=== PATIENT | male | born 1955 | race Caucasian/White ===

== ENCOUNTER 2020-02-05 18:32 | Inpatient (IN) ==
[2020-02-05] MEDS ORDERED: CEFAZOLIN SODIUM/DEXTROSE,ISO 1 GM/50 ML BAG IV ONE (18:39)
[2020-02-05] MEDS ORDERED: ceFAZolin SODIUM/DEXTROSE,ISO 2 GM/50 ML BAG IV ONE (18:42)
[2020-02-05 19:04] LABS: Hematocrit 40.7 % (42.0-52.0); Hemoglobin 13.6 gm/dL (13.5-18.0); Mean Cell Volume 99.5 fl (78-100); Mean Corpuscular Hemoglobin 33.3 pg (27-31); Mean Corpuscular Hgb Conc 33.4 g/dl (32-36); Mean Platelet Volume 10.5 fl (8-11.3); Neutrophil # 5.5 K/mm3 (1.3-6.0); Platelet Count 197 K/mm3 (150-450); Red Blood Count 4.09 M/mm3 (4.7-6.0); Red Cell Distribution Width 13.1 % (11.5-14.0); White Blood Count 9.5 K/mm3 (4.0-10.5)
[2020-02-05] MEDS ORDERED: DIPHTH,PERTUSS(ACELL),TET VAC 0.5 ML VIAL IM ONE (19:06)
--- NOTE | 2020-02-05 19:17 | ERNOTE ---
Lower Extremity HPI - Narrative Date of Service: 02/05/20 - General Lower Extremities Pain: leg: right - puncture at site of fracture Time Seen by Provider: 02/05/20 18:40 Source: patient, family - spouse Exam Limitations: no limitations - Immun/Allergies/Home Medications Immunizations: IMMUNIZATION HX Immunizations Up to Date Yes History of Influenza Vaccine More Information Required Allergies/Adverse Reactions: Allergies Allergy/AdvReac Type Severity Reaction Status Date / Time No Known Allergies Allergy Unverified 02/05/20 18:40 Home Medications: HOME MEDICATIONS Amitriptyline HCl [Elavil] 50 mg PO HS 02/05/20 [Last Taken Unknown] Divalproex Sodium [Depakote ER] 1,000 mg PO HS 02/05/20 [Last Taken Unknown] Gabapentin 300 mg PO TID 02/05/20 [Last Taken Unknown] HYDROcodone/ACETAMINOPHEN [Hydrocodon-Acetaminophn 10-325] 1 tab PO TID PRN 02/05/20 [Last Taken Unknown] Midodrine HCl 2.5 mg PO DAILY 02/05/20 [Last Taken Unknown] metFORMIN HCL [Metformin HCl] 500 mg PO BID 02/05/20 [Last Taken Unknown] - Pain Score Pain Score #1 Pain Score: 4 - History of Present Illness Narrative: The patient is a 64 year old male who presents via [facility] for open fracture after syncopal episode which has been present since [employer]. There are no associated symptoms. The patient reports pain to RLE, 410. There are alleviating factors of immobilization. There are aggravating factors of movement. Previous treatments have included: Fentanyl and Ketamine given in route by EMS. The past medical history includes: hypotension and syncope . The social history is negative. The patient has had no known ill contacts. Patient states that he has a history of syncope from drop in his blood pressure and believes that is what happened today. Report from patient's that patient was found laying on his back with bilateral lower extremites folded underneath after he yelled for help. Patient states last he recalls is getting something to drink, patient denies awareness of fall until he awoke. Review of Systems - Review of Systems Constitutional: Present: no symptoms reported. Absent: recent illness, fever, fatigue EYE: Present: no symptoms reported. Absent: vision changes ENT: Present: no symptoms reported. Absent: ear pain, nasal drainage, sore throat Respiratory: Present: no symptoms reported. Absent: shortness of breath, cough Cardiology: Present: no symptoms reported. Absent: chest pain Gastrointestinal/Abdominal: Present: no symptoms reported. Absent: vomiting, diarrhea, abdominal pain, eating less, drinking less Genitourinary: Present: no symptoms reported. Absent: decreased urinary output Musculoskeletal: Present: joint pain, joint swelling Skin: Present: lesions Neurological: Present: no symptoms reported. Absent: headache, dizziness/light- headedness, numbness All Other Systems: All systems neg except as marked Medical History (Last Reviewed 02/05/20 @ 19:09 by SON Atkins) History of syncope Hx of hypotension Surgical History: Surgical History (Last Reviewed 02/05/20 @ 19:09 by SON Atkins) History of throat surgery Hx of appendectomy Hx of foot surgery Hx of rotator cuff surgery Family History: Family History (Last Reviewed 02/05/20 @ 19:09 by SON Atkins) Other No pertinent family history Social History: (Last Updated 02/05/20 @ 19:34 by Rose Peña RN) Tobacco: Smoking Status: Never smoker Physical Exam - Physical Exam General Appearance: Present: wd/wn, alert, mild distress Head Exam: Present: normal inspection, no evidence of injury, other - top of head superficial abrasions consistent with insect bites, no surrounding erythema or drainage Eye Exam: Normal inspection: bilateral, PERRL: bilateral, EOMI: bilateral Ears, Nose, Throat: Present: dry mucous membranes Neck: Present: normal inspection, nontender, full range of motion Respiratory: Present: no respiratory distress, normal breath sounds, no accessory muscle use, lungs clear Cardiovascular/Chest: Present: regular rate, rhythm, no murmur Peripheral Pulses: N=norm/S=strong/W=weak/B=bound/A=absent: Dorsalis-pedis (R): Normal Gastrointestinal/Abdominal: Present: normal bowel sounds, nontender, nondistended, soft, no organomegaly Extremity Exam: Present: bony tenderness - right lower mid leg, puncture wound to anterior lateral calf consistent with area of angulation from presumed fracture Neurological Exam: Present: alert, oriented, normal mood/affect, no motor/sensory deficits Skin Exam: Present: normal color, warm/dry, other - ecchymosis noted to right anterior lower leg, cap refill Progress - Date and Time Seen: Date and Time: 02/05/20 19:15 was present upon arrival of patient, OCL placed to right lower extremity, sugar tong with flat plate, N/V remain intact post splinting. Open puncture has controlled bleeding, covered with saturated 4x4 with Betadine and soft roll. 02/05/20 21:26 Review of imaging and labs discussed with , will admit for planned surgical intervention tomorrow with . Patient verbalized understanding of plan of care. N/V remains intact. - Results and Orders Patient's Lab Results:: I have reviewed the patient's lab results. - Vital Signs Patient's Vital Signs:: I have reviewed the patient's vital signs. Vital Signs: Vital Signs 02/05/20 18:38 02/05/20 18:53 Temperature 36.6 C Pulse Rate 86 89 Respiratory Rate 14 16 Blood Pressure 113/91 H 113/91 H O2 Sat by Pulse Oximetry 97 95 - EKG EKG #1 EKG: NSR, nonspecific ST T wave changes EKG read: Reviewed by ca EKG Comments: No acute ST changes, no acute ischemic changes, no ectopy. - X-Ray X-Ray #1 X-Ray: chest Interpretation: Reviewed by me X-ray Comments: No acute cardiopulmonary abnormalities. X-Ray #2 X-Ray: tibula/fibula Interpretation: Reviewed by me X-ray Comments: FINDINGS/IMPRESSION: Splinting device in place. There is an acute, displaced spiral fracture of the distal tibial diaphysis with medial and posterior displacement of distal fragment in relation to the proximal fragment. There is an acute, displaced oblique fracture of the distal fibular diaphysis with apex ventral angulation. Evaluation of the foot on the lateral view is suboptimal due to splinting device. There is an oblique linear lucency at the fifth metatarsal which could be artifactual related to the overlying splinting device. Recommend correlation with pain in this region and if clinically warranted, dedicated foot radiographs should be obtained to further evaluate. Electronically signed by Tisha Martinez D.O.. - CT/Ultrasound CT/Ultrasound Narrative: Impression: No acute fracture. Straightening of the normal cervical lordosis which could be positional or related to muscle spasm. Electronically signed by Tisha Martinez D.O.. Impression: No acute intracranial process. Mild cerebral volume loss. Mild chronic small vessel ischemic disease. Electronically signed by Tisha Martinez D.O.. - Progress/Reassessment Chief Complaint: Lower Extremity Pain/ Injury Progress:: Improved Departure Clinical Impression: Tibia and fibula open fracture, right Qualifiers: Encounter type: initial encounter Open fracture type: open type I or II Qualified Code(s): S82.201B - Unspecified fracture of shaft of right tibia, initial encounter for open fracture type I or II - Departure Disposition: Still a patient Condition: Stable
[2020-02-05 19:23] LABS: INR 1.12 INR (0.92-1.08); Partial Thrombolplastin Time 22.6 Seconds (24-32)
[2020-02-05 19:26] LABS: ALT 25 U/L (19-67); AST 18 U/L (0-48); Albumin * 3.3 gm/dl (3.4-5.0); Alkaline Phosphatase * 82 U/L (50-170); BUN/Creatinine Ratio 14.5 (9.0-21.6); Bilirubin, Total 0.6 mg/dL (0.0-1.1); Blood Urea Nitrogen 24 mg/dL (6-23); Calcium * 8.8 mg/dL (7.9-10.9); Carbon Dioxide 29.6 mmol/L (24-32.6); Chloride 103 mmol/L (97-106); Glucose * 140 mg/dL (70-110); Potassium 3.6 mmol/L (3.4-4.6); Sodium 140 mmol/L (132-142)
[2020-02-05 19:29] LABS: Troponin I Less than 0.017 ng/mL (0.00-0.10)
[2020-02-05] MEDS ORDERED: HYDROmorphone HCL 1 MG/ML DISP.SYRIN IV ONE ×2 (19:37→20:39)
[2020-02-05] MEDS ORDERED: HYDROmorphone HCL 2 MG/ML VIAL IV PRN (20:58)
[2020-02-05] MEDS ORDERED: ONDANSETRON HCL/PF 2 MG/ML VIAL IV PRN (20:58)
[2020-02-05] MEDS ORDERED: NORMAL SALINE 1,000 ML IV ONE (20:58)
[2020-02-05] MEDS: ceFAZolin SODIUM/DEXTROSE,ISO 2 GM/50 ML BAG IV SCH (21:21)
[2020-02-05] MEDS: HYDROmorphone HCL 2 MG/ML VIAL IV PRN (22:47)
[2020-02-06] MEDS: HYDROmorphone HCL 2 MG/ML VIAL IV PRN ×2 (02:46→07:11)
[2020-02-06] MEDS ORDERED: NORMAL SALINE 1,000 ML IV PRN (03:44)
[2020-02-06] MEDS: ceFAZolin SODIUM/DEXTROSE,ISO 2 GM/50 ML BAG IV SCH ×2 (04:04→14:05)
--- NOTE | 2020-02-06 07:47 | CONS ---
[facility] - General Date of Service: 02/06/20 Narrative: Mr. Denis is a 64-year-old gentleman who was at home when he had an episode which resulted in him falling to the ground and noting a deformity to his right leg. He was brought to the emergency department with a grade 1 open distal tibia and fibula shaft fracture. He was splinted given antibiotics and had a sterile dressing applied to the wound and admitted for further care. He reports a prior injury to his left foot. He denies any prior trauma to the right leg. He denies any other symptoms. Source: patient - History of Present Illness Timing/Duration: 24 hours Severity: mild Modifying Factors - (Worsens): Reports: movement Modifying Factors - (Improves): Reports: immobilization Associated Symptoms: denies symptoms Allergies/Adverse Reactions: Allergies No Known Allergies Allergy (Unverified 02/05/20 18:40) Home Medications: Home Medications Medication Instructions Recorded Last Taken Amitriptyline HCl [Elavil] 50 mg PO HS 02/05/20 Unknown Divalproex Sodium [Depakote ER] 1,000 mg PO HS 02/05/20 Unknown Gabapentin 300 mg PO TID 02/05/20 Unknown HYDROcodone/ACETAMINOPHEN 1 tab PO TID PRN 02/05/20 Unknown [Hydrocodon-Acetaminophn 10-325] Midodrine HCl 2.5 mg PO DAILY 02/05/20 Unknown metFORMIN HCL [Metformin HCl] 500 mg PO BID 02/05/20 Unknown Procedures Injection of anesthetic into spinal canal for analgesia (05/13/06) Injection of other agent into spinal canal (05/13/06) Injection of steroid (05/13/06) Medications - Medications Current Medications: Current Medications Hydromorphone HCl (Dilaudid) 2 mg IV Q2H PRN PRN Reason: pain Stop: 03/06/20 22:31 Last Admin: 02/06/20 07:11 Dose: 2 mg Documented by: Cefazolin Sodium/Dextrose (Ancef) 2 gm in 50 mls @ 100 mls/hr IV Q8H [facility]; Protocol Stop: 03/06/20 21:01 Last Infusion: 02/06/20 04:43 Dose: Infused Documented by: Sodium Chloride (Sodium Chloride 0.9%) 1,000 mls @ 160 mls/hr IV .Q6H15M PRN PRN Reason: HYDRATION Stop: 03/07/20 03:45 Last Admin: 02/06/20 03:51 Dose: 160 mls/hr Documented by: Review of Systems - Review of Systems Narrative: Negative except for above Physical Examination - Exam Narrative: Right lower extremity: Less than 1 cm laceration bleeding bright red blood from the lateral aspect of the lower leg, noted swelling over the anterior distal leg, mild deformity, he was able to flex and extend his toes and to some extent his ankle, sensations intact, possible pulse, no other skin breakdown, calf is soft Vital Signs: Vital Signs - Last Taken Temp 37.2 C 02/06/20 06:34 Pulse 112 H 02/06/20 06:34 Resp 20 02/06/20 06:34 BP 93/60 02/06/20 06:34 Pulse Ox 94 02/06/20 06:34 O2 Oxygen Delivery Method Room Air Constitutional: Present: Alert, Oriented x3 - Results and Findings: Narrative: 2 views right tibia and fibula: Comminuted distal fibula and distal tibia shaft fractures, noted displacement, no displacement of the intra-articular distal tibia Lab/Microbiology results last 24 hrs: Abnormal/Pending Laboratory Last 24 HRS 02/05/20 02/05/20 02/05/20 18:55 18:55 18:55 RBC 4.09 L Hct 40.7 L MCH 33.3 H Immature Gran % (Auto) 0.50 H Immature Gran # (Auto) 0.05 H Eosinophils % 3.9 H Basophils % 1.1 H PT 11.0 H INR (Anticoag Therapy) 1.12 H PTT (Milly) 22.6 L BUN 24 H Creatinine 1.65 H Est GFR (Non-Af Amer) 45 L Random Glucose 140 H Albumin 3.3 L - Assessments/Findings (1) Tibia and fibula open fracture, right Diagnosis(s): Plan for fixation today - Will need 48 hr post-op antibiotics Problem: Acute Qualifiers: Encounter type: initial encounter Open fracture type: open type I or II Qualified Code(s): S82.201B - Unspecified fracture of shaft of right tibia, initial encounter for open fracture type I or II; S82.401B - Unspecified fracture of shaft of right fibula, initial encounter for open fracture type I or II
--- NOTE | 2020-02-06 07:54 | HP ---
Chief Complaint - Chief Complaint Date of Service: 02/06/20 Time of Service: 07:00 Chief Complaint: Fall, Right leg pain History of Present Illness: Ferny is a 64 yo male with history of hypotensive episodes and falls. He reports he was walking in his house and the next moment he is on the ground. He does not recall falling or the cause to the fall, other than his history of drops. On the floor he noticed right leg pain and noticed his leg was not moving properly. He presented to the [facility] ER and examination/imaging showed right open tib/fib fracture. He was seen by orthopedics who recommend surgical repair. He reports he has been in his usual state of health. He is scheduled to see a DrRobles in [place] in regards to his syncopal episodes but is unsure what specialty. He denies cardiac history, including chest pain, palpitations, skipped beats, or shortness of breath. Medical History (Last Reviewed 02/05/20 @ 21:47 by Beronica Gonzalez RN) History of syncope Hx of hypotension Surgical History: Surgical History (Last Reviewed 02/05/20 @ 21:47 by Beronica Gonzalez RN) History of throat surgery Hx of appendectomy Hx of foot surgery Hx of rotator cuff surgery Family History: Family History (Last Reviewed 02/05/20 @ 21:47 by Beronica Gonzalez RN) Other No pertinent family history Social History: (Last Reviewed 02/05/20 @ 21:47 by Beronica Gonzalez RN) Tobacco: Smoking Status: Never smoker Review Of Systems (GEN) - Review of Systems Generalized/Overall Review: Present: Weakness. Absent: Chills, Fever EENTM: Present: No Symptoms Reported Respiratory: Absent: Cough, Shortness of Breath Cardiac: Absent: Chest Pain, Edema Abdominal: Absent: Nausea, Vomiting, Abdominal Pain, Constipation, Diarrhea Genitourinary: Absent: Burning, Frequency Musculoskeletal: Present: Joint Pain, Muscle Pain Neurological: Present: No Symptoms Reported Skin: Absent: Lesions, Rash Immunizations: IMMUNIZATION HX Immunizations Up to Date Yes History of Influenza Vaccine More Information Required Allergies/Adverse Reactions: Allergies Allergy/AdvReac Type Severity Reaction Status Date / Time No Known Allergies Allergy Unverified 02/05/20 18:40 Home Medications: HOME MEDICATIONS Amitriptyline HCl [Elavil] 50 mg PO HS 02/05/20 [Last Taken Unknown] Divalproex Sodium [Depakote ER] 1,000 mg PO HS 02/05/20 [Last Taken Unknown] Gabapentin 300 mg PO TID 02/05/20 [Last Taken Unknown] HYDROcodone/ACETAMINOPHEN [Hydrocodon-Acetaminophn 10-325] 1 tab PO TID PRN 02/05/20 [Last Taken Unknown] Midodrine HCl 2.5 mg PO DAILY 02/05/20 [Last Taken Unknown] metFORMIN HCL [Metformin HCl] 500 mg PO BID 02/05/20 [Last Taken Unknown] Exam - Exam Vital Signs: Vital Signs - Last Taken Temp 37.2 C 02/06/20 06:34 Pulse 112 H 02/06/20 06:34 Resp 20 02/06/20 06:34 BP 93/60 02/06/20 06:34 Pulse Ox 94 02/06/20 06:34 Constitutional: Present: Alert, Oriented x3, Cooperative ENT Exam: Present: hearing grossly normal Eye Exam: bilateral eye: normal inspection Respiratory: Present: lungs clear, normal breath sounds, no respiratory distress Cardiovascular/Chest: Present: no edema, no murmur, tachycardia Peripheral Pulses: dorsalis-pedis (R): 2+, dorsalis-pedis (L): 2+, radial (R): 2+, radial (L): 2+ Abdomen: Present: Normal bowel sounds, soft, nontender, nondistended Skin Exam: Present: normal color, no cyanosis, other - right foot is a little cooler than left, but has brisk capillary refill Appearance: Present: appropriate appearance, appropriate insight Eye contact: Present: cooperative, good eye contact, normal speech Thoughts: Present: normal thought pattern, no apparent hallucination Diagnostic Studies: Abnormal Lab Results 02/05/20 02/05/20 02/05/20 Range/Units 18:55 18:55 18:55 RBC 4.09 L (4.7-6.0) M/mm3 Hct 40.7 L (42.0-52.0) % MCH 33.3 H (27-31) pg Immature Gran % (Auto) 0.50 H (0.001-0.429) % Immature Gran # (Auto) 0.05 H (0.000-0.0310) K/mm3 Eosinophils % 3.9 H (0.0-3.0) % Basophils % 1.1 H (0.0-1.0) % PT 11.0 H (9.1-10.7) Seconds INR (Anticoag Therapy) 1.12 H (0.92-1.08) INR PTT (Milly) 22.6 L (24-32) Seconds BUN 24 H (6-23) mg/dL Creatinine 1.65 H (0.4-1.4) mg/dL Est GFR (Non-Af Amer) 45 L (60-130) mL/min Random Glucose 140 H (70-110) mg/dL Albumin 3.3 L (3.4-5.0) gm/dl Laboratory Results WBC 9.5 K/mm3 (4.0-10.5) 02/05/20 18:55 RBC 4.09 M/mm3 (4.7-6.0) L 02/05/20 18:55 Hgb 13.6 gm/dL (13.5-18.0) 02/05/20 18:55 Hct 40.7 % (42.0-52.0) L 02/05/20 18:55 MCV 99.5 fl (78-100) 02/05/20 18:55 MCH 33.3 pg (27-31) H 02/05/20 18:55 MCHC 33.4 g/dl (32-36) 02/05/20 18:55 RDW 13.1 % (11.5-14.0) 02/05/20 18:55 Plt Count 197 K/mm3 (150-450) 02/05/20 18:55 MPV 10.5 fl (8-11.3) 02/05/20 18:55 Immature Gran % (Auto) 0.50 % (0.001-0.429) H 02/05/20 18:55 Immature Gran # (Auto) 0.05 K/mm3 (0.000-0.0310) H 02/05/20 18:55 Neutrophils % 58.0 % (42-75.0) 02/05/20 18:55 Lymphocytes % 28.5 % (20-51) 02/05/20 18:55 Monocytes % 8.0 % (0.0-9) 02/05/20 18:55 Eosinophils % 3.9 % (0.0-3.0) H 02/05/20 18:55 Basophils % 1.1 % (0.0-1.0) H 02/05/20 18:55 Nucleated RBC % 0.0 k/mm3 (0-1) 02/05/20 18:55 Neutrophils # 5.5 K/mm3 (1.3-6.0) 02/05/20 18:55 Lymphocytes # 2.71 k/mm3 (1.5-3.5) 02/05/20 18:55 Monocytes # 0.8 k/mm3 (0.0-1.0) 02/05/20 18:55 Eosinophils # 0.4 k/mm3 (0.0-0.7) 02/05/20 18:55 Absolute Basophils 0.1 k/mm3 (0.0-0.1) 02/05/20 18:55 PT 11.0 Seconds (9.1-10.7) H 02/05/20 18:55 INR (Anticoag Therapy) 1.12 INR (0.92-1.08) H 02/05/20 18:55 PTT (Milly) 22.6 Seconds (24-32) L 02/05/20 18:55 Sodium 140 mmol/L (132-142) 02/05/20 18:55 Plasma Sodium 141 mmol/L (130-142) 02/05/20 18:55 Potassium 3.6 mmol/L (3.4-4.6) 02/05/20 18:55 Chloride 103 mmol/L (97-106) 02/05/20 18:55 Carbon Dioxide 29.6 mmol/L (24-32.6) 02/05/20 18:55 Anion Gap 11.0 mmol/L (6.8-13.8) 02/05/20 18:55 BUN 24 mg/dL (6-23) H 02/05/20 18:55 Creatinine 1.65 mg/dL (0.4-1.4) H 02/05/20 18:55 Est GFR (Non-Af Amer) 45 mL/min (60-130) L 02/05/20 18:55 BUN/Creatinine Ratio 14.5 (9.0-21.6) 02/05/20 18:55 Random Glucose 140 mg/dL (70-110) H 02/05/20 18:55 Calcium 8.8 mg/dL (7.9-10.9) 02/05/20 18:55 Calcium Adj for Albumin 9.0 mg/dL (8.4-10.2) 02/05/20 18:55 Total Bilirubin 0.6 mg/dL (0.0-1.1) 02/05/20 18:55 AST 18 U/L (0-48) 02/05/20 18:55 ALT 25 U/L (19-67) 02/05/20 18:55 Alkaline Phosphatase 82 U/L (50-170) 02/05/20 18:55 Troponin I Less than 0.017 ng/mL (0.00-0.10) 02/05/20 18:55 Total Protein 7.0 gm/dL (6.2-8.2) 02/05/20 18:55 Albumin 3.3 gm/dl (3.4-5.0) L 02/05/20 18:55 SARS-CoV-2 (PCR) Not detected (NotDetected) 02/05/20 19:47 Assessment/Plan - Narrative Narrative: Ferny is a 64 yo male with history of syncopal episodes, most recently causing a fall leading to right open tib/fib fracture. Ortho was consulted and will surgically repair today. Ferny is medically stable. Patient was evaluated for pre-operative risks. Based on Revised Cardiovascular Risk Index he has a risk of 1% for cardiovascular event. I feel he is medically cleared for surgery. His pain is fairly well controlled with IV dilaudid at this time. EKG and labs reviewed. - Assessment/Plan (1) Tibia and fibula open fracture, right Problem: Acute Qualifiers: Encounter type: initial encounter Open fracture type: open type I or II Qualified Code(s): S82.201B - Unspecified fracture of shaft of right tibia, initial encounter for open fracture type I or II; S82.401B - Unspecified fracture of shaft of right fibula, initial encounter for open fracture type I or II (2) Fall Problem: Acute (3) Syncopal episodes Problem: Chronic
--- NOTE | 2020-02-06 12:38 | ANES ---
Anesthesia Pre Procedure Eval Vitals/Labs: Last Vital Signs Temp 37.2 C 02/06/20 11:06 Pulse 106 H 02/06/20 11:56 Resp 23 H 02/06/20 11:56 BP 100/76 02/06/20 11:06 Pulse Ox 98 02/06/20 11:56 HOME MEDICATIONS Amitriptyline HCl [Elavil] 50 mg PO HS 02/05/20 [Last Taken Unknown] Divalproex Sodium [Depakote ER] 1,000 mg PO HS 02/05/20 [Last Taken Unknown] Gabapentin 300 mg PO TID 02/05/20 [Last Taken Unknown] HYDROcodone/ACETAMINOPHEN [Hydrocodon-Acetaminophn 10-325] 1 tab PO TID PRN 02/05/20 [Last Taken Unknown] Midodrine HCl 2.5 mg PO DAILY 02/05/20 [Last Taken Unknown] metFORMIN HCL [Metformin HCl] 500 mg PO BID 02/05/20 [Last Taken Unknown] Allergies/Adverse Reactions: Allergies Allergy/AdvReac Type Severity Reaction Status Date / Time No Known Allergies Allergy Unverified 02/05/20 18:40 - Planned Procedure Planned Procedure: OPEN TIB/FIB FX RIGHT Medication List Reviewed:: Yes Allergies Verified: Yes Medical History (Last Reviewed 02/06/20 @ 12:37 by Armani Moise CRNA) History of syncope Hx of hypotension Surgical History (Last Reviewed 02/06/20 @ 12:37 by Armani Moise CRNA) History of throat surgery Hx of appendectomy Hx of foot surgery Hx of rotator cuff surgery Family History (Last Reviewed 02/06/20 @ 12:37 by Armani Moise CRNA) Other No pertinent family history - Family Anesthesia History Family History:: no untoward family reactions to anesthesia - Airway/Neck/Teeth Teeth Condition: none Neck Exam: limited range of motion Mallampatti Score: 3 Thyromental (T-M) distance: > 6 cm Mandibulo Hyoid distance: > 3 cm - Respiratory Respiratory History: CPAP/BiPAP home use Respiratory Physical: lungs clear Smoking Status: Never smoker Sleep Apnea currently treated: Yes Sleep Apnea by current assessment: Yes - Cardiovascular Tolerate Activity: Fair Heart Sounds: S1 & S2, Regular - Gastrointestinal NPO since: mn - Anesthesia Assessment and Plan ASA Class: PS, III Anesthesia Type Plan: General LMA Planned difficult intubation/equipment available: No
[2020-02-06] MEDS: NORMAL SALINE 1,000 ML IV PRN ×3 (13:38→18:38)
[2020-02-06] MEDS ORDERED: ceFAZolin SODIUM 1 GM VIAL ONE (14:01)
[2020-02-06] MEDS: MIDODRINE HCL 2.5 MG TABLET PO SCH (14:12)
[2020-02-06] MEDS ORDERED: BUPIVACAINE HCL 50 ML VIAL IJ ONE (14:29)
[2020-02-06] MEDS ORDERED: PROPOFOL VIAL IV ONE (15:40)
[2020-02-06] MEDS ORDERED: KETOROLAC TROMETHAMINE 30 MG/ML VIAL ONE (15:40)
[2020-02-06] MEDS ORDERED: ONDANSETRON HCL/PF 2 MG/ML VIAL ONE (15:40)
[2020-02-06] MEDS ORDERED: fentaNYL CITRATE/PF 50 MCG/ML AMPUL ONE (15:40)
[2020-02-06] MEDS ORDERED: SEVOFLURANE 250 ML BTL IH ONE (15:56)
[2020-02-06] MEDS ORDERED: ZOLPIDEM TARTRATE 5 MG TABLET PO PRN (18:44)
[2020-02-06] MEDS ORDERED: ACETAMINOPHEN 500 MG TABLET PO PRN (18:44)
[2020-02-06] MEDS ORDERED: MAG HYDROX/ALUMINUM HYD/SIMETH 30 ML UDC PO PRN (18:44)
[2020-02-06] MEDS ORDERED: MAGNESIUM HYDROXIDE 30 ML UDC PO PRN (18:44)
--- NOTE | 2020-02-06 18:52 | OR ---
Operative Report - Dictated Report Narrative: date: 02/06/2020 Surgeon: Pardeep Caceres M.D. Nurse First Aid: Cristobal Golden PA-C (provided an essential set of skilled educated handset assisted with transfer, positioning, prepping, draping, placement of instruments, insertion of implants, irrigation, closure wounds, and placement of dressings all which could not be performed by the available surgical crew) Preoperative diagnosis: Grade 1 open comminuted distal fibula and closed comminuted distal tibia fracture on the right Postoperative diagnosis: Grade 1 open comminuted distal fibula and closed comminuted distal tibia fracture on the right Operations and procedures: 1. Closed reduction, intramedullary fixation right tibia fracture 2. Irrigation debridement of wounds 3. Closed treatment of distal fibula fracture 4. Intraoperative interpretation of radiographs Anesthesia: General Specimens: None Estimated blood loss: 100 milliliters Retained implants: [employer] size 10 mm by 38 centimeter tibial nail with associated proximal and distal locking screws Complications: None Indications for procedure: Mr. Denis is a 64-year-old gentleman who injured the right leg after ground- level fall at home. They were admitted to the hospital after being evaluated in the emergency department. Once the medical provider felt that they were stable for surgical treatment, the risks and benefits alternatives were discussed. The risks of , blood clots, bleeding, infection, nerve/tendon/blood vessel inj ury, malunion, nonunion, failure of implants, painful implants, knee pain, arthrosis, and need for additional procedures were discussed. The extremity was marked and consent was obtained on the floor. Procedure: After marking the operative extremity on the floor, the patient was taken to the operating room. A timeout was performed. IV antibiotics consisting of Ancef were administered. A general anesthetic was induced by anesthesia, and the patient was then placed in the supine position with a bump under the operative buttock. The splint was removed and the leg was pre-scrubbed with chlorhexidine and prepped and draped in a standard sterile fashion. Preliminary images were obtained with C arm in order to evaluate for reduction of the fracture. The knee was placed over a triangle and a longitudinal incision was made over the patella tendon. Sharp dissection was carried through the patella tendon in order to expose the proximal tibia. The guidewire was then inserted to the proximal tibia just off the anterior aspect of the tibial plateau in line with the lateral aspect of the medial tibial spine. Once we confirm the appropriate placement of the guidewire, soft tissues were protected and the entry drill was placed down the proximal tibia. While holding the tibial fracture reduced on both the AP and lateral views, the reaming guidewire was placed down the intramedullary canal seating it centered on the AP and lateral aspect of the distal tibia. Once we felt that we had adequately reduced the fracture and appropriately placed the guidewire, a series of reamers were utilized up to a size 11.5 mm with good chatter at the isthmus. The appropriate nail size was selected and impacted. The fracture was held reduced and a percutaneous reduction clamp was used while this was performed and visualized using C arm. 2 proximal interlocking screws and 2 distal interlocking screws were then placed ensuring that the fracture was reduced. This was confirmed on AP and lateral views. The nail was confirmed to be below the level of the bone proximally and outside of the ankle joint distally. The small 1 cm puncture wound over the distal fibula was irrigated and closed with jassi. Due to the stability of the ankle and the overall acceptable fibular alignment, it was elected not to proceed with surgical intervention of the fibula unnecessarily treated closed. Once final images were obtained ensuring reduction and placement of the implants, the wounds were thoroughly irrigated. The patella tendon was repaired with interrupted 0 Vicryl, the peritenon was closed with 3-0 Vicryl, subcutaneous tissue with 3-0 Vicryl as well as the percutaneous screw incisions. All the wounds were closed with jassi. Xeroform, 4 x 4's, Sof-Rol, and a full leg Karthikeyan wrap was applied. All sponge, sharp, and instrument counts were correct prior to closing the wounds. The patient was then awoken and transferred to the postanesthesia care unit in stable condition.
--- NOTE | 2020-02-06 19:38 | ANES ---
Post Anesthesia Discharge - Transfer of Care Transfer of Care handoff given to nurse: Yes - Discharge from PACU Discharge from PACU when meets criteria: Yes
--- NOTE | 2020-02-06 19:38 | ANES ---
Post Anesthesia Assessment - Vital Signs Vitals: Last Vital Signs Temp 36.8 C 02/06/20 18:55 Pulse 103 H 02/06/20 19:15 Resp 18 02/06/20 19:15 BP 110/69 02/06/20 19:15 Pulse Ox 96 02/06/20 19:15 Airway Patency: Normal - Mental Status Level Of Consciousness: Awake - Pain Level Pain Score: 5 - N/V Assessment Nausea/Vomiting Presence: None Dehydration:: No
[2020-02-06] MEDS: oxyCODONE HCL/ACETAMINOPHEN 1 TAB TABLET PO PRN (21:13)
[2020-02-06] MEDS: DIVALPROEX SODIUM 500 MG TAB.SR.24H PO SCH (21:13)
[2020-02-06] MEDS: AMITRIPTYLINE HCL 50 MG TABLET PO SCH (21:14)
[2020-02-06] MEDS ORDERED: ASPIRIN 325 MG TABLET.DR ONE (21:17)
[2020-02-06] MEDS: ASPIRIN 81 MG TABLET.DR PO SCH (21:18)
[2020-02-06] MEDS: SENNOSIDES/DOCUSATE SODIUM 1 TAB TABLET PO SCH (21:18)
[2020-02-06] MEDS: ceFAZolin SODIUM 2 GM in DEXTROSE 5 % IN WATER 100 ML IV SCH ×2 (23:33)
[2020-02-07] MEDS: oxyCODONE HCL/ACETAMINOPHEN 1 TAB TABLET PO PRN ×5 (03:24→22:01)
[2020-02-07] MEDS: ceFAZolin SODIUM 2 GM in DEXTROSE 5 % IN WATER 100 ML IV SCH ×2 (05:19)
[2020-02-07] MEDS ORDERED: ceFAZolin SODIUM 1 GM VIAL IV PRN (06:00)
[2020-02-07 06:38] LABS: Hematocrit 30.8 % (42.0-52.0); Mean Cell Volume 102.3 fl (78-100); Mean Corpuscular Hemoglobin 33.2 pg (27-31); Mean Corpuscular Hgb Conc 32.5 g/dl (32-36); Mean Platelet Volume 10.8 fl (8-11.3); Platelet Count 127 K/mm3 (150-450); Red Blood Count 3.01 M/mm3 (4.7-6.0); Red Cell Distribution Width 13.5 % (11.5-14.0)
[2020-02-07 06:40] LABS: Anion Gap 12.5 mmol/L (6.8-13.8); BUN/Creatinine Ratio 16.7 (9.0-21.6); Calcium * 7.3 mg/dL (7.9-10.9); Carbon Dioxide 26.9 mmol/L (24-32.6); Estimated Creat Clear 50.2; Potassium 3.4 mmol/L (3.4-4.6)
[2020-02-07] MEDS: ASPIRIN 81 MG TABLET.DR PO SCH (08:43)
[2020-02-07] MEDS: MIDODRINE HCL 2.5 MG TABLET PO SCH (08:43)
[2020-02-07] MEDS: ceFAZolin SODIUM 2 GM in DEXTROSE 5 % IN WATER 50 ML IV SCH ×4 (10:08→16:11)
--- NOTE | 2020-02-07 15:13 | PN ---
Subjective - Date and Time Seen Date: 02/08/20 Time: 07:30 Subjective Narrative: Subjective: Reports pain. Was able to take a few steps with therapy. Tolerating by mouth intake. Denies any nausea or vomiting. Denies calf pain. Physical exam: Alert and oriented to person, place and time Right lower extremity: Palpable dorsalis pedis pulse. Sensation grossly intact to light touch. Dressings minimal bloody drainage. Able to flex and extend ankle and toes. No excessive drainage. Calf and thigh are soft X-rays of left knee and ankle reviewed: No acute osseous pathology, ankle films consistent with his prior ankle injury Assessment: Postop day 2 status post intramedullary fixation of right tibia. Plan: DContinue with physical and occupational therapy toe-touch weightbearing as tolerated. Continue with anticoagulationaspirin. 48 hours postoperative prophylactic antibiotics. Pain control with goal to rely on oral medications. Continue bowel regimen. Will need 6 weeks with walker or assistive device to protect joint while ambulating during the recovery process. Discharge planning. Okay to discharge from an orthopedic standpoint after 48 hours of postoperative antibiotics. He will continue toe-touch weightbearing and wearing his cam boot. Like to see him back in 2 weeks with x-rays. Objective - Vitals Vitals: Last Vital Signs Temp 36.5 C 02/07/20 14:44 Pulse 102 H 02/07/20 14:44 Resp 17 02/07/20 14:44 BP 131/72 02/07/20 14:44 Pulse Ox 94 02/07/20 14:44 - Abnormal Lab Findings Abnormal Lab Findings: Abnormal Lab Results 02/07/20 02/07/20 Range/Units 06:05 06:05 WBC 12.0 H D (4.0-10.5) K/mm3 RBC 3.01 L (4.7-6.0) M/mm3 Hgb 10.0 L (13.5-18.0) gm/dL Hct 30.8 L (42.0-52.0) % MCV 102.3 H (78-100) fl MCH 33.2 H (27-31) pg Plt Count 127 L (150-450) K/mm3 BUN 30 H (6-23) mg/dL Creatinine 1.80 H (0.4-1.4) mg/dL Est GFR (Non-Af Amer) 40 L (60-130) mL/min Calcium 7.3 L (7.9-10.9) mg/dL Assessment/Plan - Problems/Diagnosis (1) Tibia and fibula open fracture, right Problem: Acute Qualifiers: Encounter type: subsequent encounter Open fracture type: open type I or II Fracture healing: with routine healing Qualified Code(s): S82.201E - Unspecified fracture of shaft of right tibia, subsequent encounter for open fracture type I or II with routine healing; S82.401E - Unspecified fracture of shaft of right fibula, subsequent encounter for open fracture type I or II with routine healing
[2020-02-07] MEDS: SENNOSIDES/DOCUSATE SODIUM 1 TAB TABLET PO SCH (21:56)
[2020-02-07] MEDS: DIVALPROEX SODIUM 500 MG TAB.SR.24H PO SCH (21:56)
[2020-02-07] MEDS: ASPIRIN 325 MG TABLET.DR PO SCH (21:57)
[2020-02-07] MEDS: AMITRIPTYLINE HCL 50 MG TABLET PO SCH (21:57)
--- NOTE | 2020-02-07 23:08 | PN ---
Subjective - Date and Time Seen Date: 02/07/20 Time: 12:30 Subjective Narrative: Ferny reports feeling better today. He has not been up and weight bearing today. He has been off oxygen since last night. No fever, chills, nausea, or vomiting. Objective - Vitals Vitals: Last Vital Signs Temp 36.1 C 02/07/20 18:05 Pulse 89 02/07/20 18:05 Resp 20 02/07/20 18:05 BP 123/46 02/07/20 18:05 Pulse Ox 96 02/07/20 18:05 - Abnormal Lab Findings Abnormal Lab Findings: Abnormal Lab Results 02/07/20 02/07/20 Range/Units 06:05 06:05 WBC 12.0 H D (4.0-10.5) K/mm3 RBC 3.01 L (4.7-6.0) M/mm3 Hgb 10.0 L (13.5-18.0) gm/dL Hct 30.8 L (42.0-52.0) % MCV 102.3 H (78-100) fl MCH 33.2 H (27-31) pg Plt Count 127 L (150-450) K/mm3 BUN 30 H (6-23) mg/dL Creatinine 1.80 H (0.4-1.4) mg/dL Est GFR (Non-Af Amer) 40 L (60-130) mL/min Calcium 7.3 L (7.9-10.9) mg/dL - Exam Constitutional: Present: Alert, Oriented x3 ENT Exam: Present: hearing grossly normal Respiratory: Present: lungs clear, normal breath sounds Cardiovascular/Chest: Present: regular rate, rhythm, no murmur Abdomen: Present: Normal bowel sounds, soft, nontender, nondistended Appearance: Present: appropriate appearance, appropriate insight Eye contact: Present: cooperative, good eye contact, normal speech Assessment/Plan Plan Narrative: Respiratory status back to baseline. He is doing fairly well after surgery, just needing strengthening. Continue to work with PT and if progressing may be able to discharge tomorrow. - Problems/Diagnosis (1) Tibia and fibula open fracture, right Problem: Acute Qualifiers: Encounter type: subsequent encounter Open fracture type: open type I or II Fracture healing: with routine healing Qualified Code(s): S82.201E - Unspecified fracture of shaft of right tibia, subsequent encounter for open fracture type I or II with routine healing; S82.401E - Unspecified fracture of shaft of right fibula, subsequent encounter for open fracture type I or II with routine healing (2) Fall Problem: Acute (3) Syncopal episodes Problem: Chronic
[2020-02-08] MEDS: ceFAZolin SODIUM 2 GM in DEXTROSE 5 % IN WATER 50 ML IV SCH ×6 (00:07→10:49)
[2020-02-08] MEDS: oxyCODONE HCL/ACETAMINOPHEN 1 TAB TABLET PO PRN (08:13)
[2020-02-08] MEDS: ASPIRIN 325 MG TABLET.DR PO SCH (08:14)
[2020-02-08] MEDS: MIDODRINE HCL 2.5 MG TABLET PO SCH (08:14)
--- NOTE | 2020-02-08 12:07 | DS ---
(1) Tibia and fibula open fracture, right Problem: Acute Qualifiers: Encounter type: subsequent encounter Open fracture type: open type I or II Fracture healing: with routine healing Qualified Code(s): S82.201E - Unspecified fracture of shaft of right tibia, subsequent encounter for open fracture type I or II with routine healing; S82.401E - Unspecified fracture of shaft of right fibula, subsequent encounter for open fracture type I or II with routine healing (2) Acute respiratory failure with hypoxia and hypercapnia Problem: Resolved (3) Fall Problem: Acute (4) Syncopal episodes Problem: Chronic Date of Discharge:: 02/08/20 Hospital Course: Ferny is a 64 yo male that had a syncopal episode at home, fell, and developed an open right tib/fib fracture. Due to increased sedation from pain medications and potentially underlying sleep apnea he developed acute respiratory failure with hypoxia and hypercapnea. This was evident by arterial blood gas. He was placed on bipap and this resolved. He was ultimately weaned off of oxygen. He was medically cleared for surgery and did well. He began working with PT and gradually improved. Procedures Performed: see notes below List Procedures: 02/06/2020 Operations and procedures: 1. Closed reduction, intramedullary fixation right tibia fracture 2. Irrigation debridement of wounds 3. Closed treatment of distal fibula fracture Results and Findings: Lab Pending Results 02/05/20 18:55: WBC 9.5, RBC 4.09 L, Hgb 13.6, Hct 40.7 L, MCV 99.5, MCH 33.3 H, MCHC 33.4, RDW 13.1, Plt Count 197, MPV 10.5, Immature Gran % (Auto) 0.50 H, Immature Gran # (Auto) 0.05 H, Neutrophils % 58.0, Lymphocytes % 28.5, Monocytes % 8.0, Eosinophils % 3.9 H, Basophils % 1.1 H, Nucleated RBC % 0.0, Neutrophils # 5.5, Lymphocytes # 2.71, Monocytes # 0.8, Eosinophils # 0.4, Absolute Basophils 0.1 02/05/20 18:55: Sodium 140, Plasma Sodium 141, Potassium 3.6, Chloride 103, Carbon Dioxide 29.6, Anion Gap 11.0, BUN 24 H, Creatinine 1.65 H, Est GFR (Non- Af Amer) 45 L, BUN/Creatinine Ratio 14.5, Random Glucose 140 H, Calcium 8.8, Calcium Adj for Albumin 9.0, Total Bilirubin 0.6, AST 18, ALT 25, Alkaline Phosphatase 82, Troponin I Less than 0.017, Total Protein 7.0, Albumin 3.3 L 02/05/20 18:55: PT 11.0 H, INR (Anticoag Therapy) 1.12 H, PTT (Brooke) 22.6 L 02/05/20 19:47: SARS-CoV-2 (PCR) Not detected 02/06/20 11:00: pCO2 53.0 H, pO2 43.1 L, HCO3 25.1, Total CO2 26.8 H, Base Excess -2.1 L, ABG pH 7.29 L, ABG O2 Sat (Measured) 73.0 L 02/06/20 13:10: pCO2 38.2, pO2 98.7, HCO3 20.7 L, Total CO2 21.8, Base Excess - 4.4 L, ABG pH 7.35, ABG O2 Sat (Measured) 97.2 02/07/20 06:05: WBC 12.0 H D, RBC 3.01 L, Hgb 10.0 L, Hct 30.8 L, MCV 102.3 H, MCH 33.2 H, MCHC 32.5, RDW 13.5, Plt Count 127 L, MPV 10.8 02/07/20 06:05: Sodium 141, Plasma Sodium 141, Potassium 3.4, Chloride 105, Carbon Dioxide 26.9, Anion Gap 12.5, BUN 30 H, Creatinine 1.80 H, Est GFR (Non- Af Amer) 40 L, BUN/Creatinine Ratio 16.7, Random Glucose 96 D, Calcium 7.3 L Discharge Location: Home Disposition: Home self-care Condition: Stable Discharge Activity: Partial-Weight bearing - toe touch weight bearing to right leg Discharge Diet: General/regular food Referrals: Pardeep Caceres MD [Staff Physician] - Two Weeks Heriberto Tai MD [Primary Care Provider] - One Week Problem Oriented Discharge Instructions to Patient/Family: Tibial Fracture, Adult, Syncope, [id number] Additional Patient Instructions (free text): Follow up [facility] Orthopedic office appointment on TuesdayFebruary 21 at 8:45am. Follow up with PCP Marco Joe on TuesdayFebruary 19 at 1:00pm in [place]. Please fax chart information to [phone]. Ortho Plan: Will need 6 weeks with walker or assistive device to protect joint while ambulating during the recovery process. He will continue toe-touch weightbearing and wearing his cam boot. Prescriptions (Any new or edited meds): Aspirin [Aspirin Enteric Coated] 325 mg PO BID #60 tablet. Transmission Status: Received [place] oxyCODONE HCL/ACETAMINOPHEN [Percocet 5 MG/325 MG] 1 tab PO Q4H PRN #60 tab PRN Reason: Moderate Pain (Pain Scale 4-6) Transmission Status: Received [place] Sennosides/Docusate Sodium [Senokot-S] 2 tab PO HS #60 tab Transmission Status: Received [place] Complete Home Medications List: Complete Home Medication List: Amitriptyline HCl [Elavil] 50 mg PO HS 02/05/20 Divalproex Sodium [Depakote ER] 1,000 mg PO HS 02/05/20 Gabapentin 300 mg PO TID 02/05/20 Midodrine HCl 2.5 mg PO DAILY 02/05/20 metFORMIN HCL [Metformin HCl] 500 mg PO BID 02/05/20 Acetaminophen [Tylenol] 1,000 mg PO Q6H PRN tab 02/08/20 Aspirin [Aspirin Enteric Coated] 325 mg PO BID #60 tablet. 02/08/20 Mag Hydrox/Aluminum Hyd/Simeth [Maalox Plus Suspension] 30 ml PO Q6H PRN udc 02/08/20 Magnesium Hydroxide [Milk Of Magnesia] 30 ml PO DAILY PRN udc 02/08/20 Sennosides/Docusate Sodium [Senokot-S] 2 tab PO HS #60 tab 02/08/20 oxyCODONE HCL/ACETAMINOPHEN [Percocet 5 MG/325 MG] 1 tab PO Q4H PRN #60 tab 02/08/20 Forms: Patient Portal Registration
[2020-02-08] MEDS ORDERED: FLU VACC QS2020-21(6MOS UP)/PF 60 MCG/0.5 ML SYRINGE IM ONE (16:20)
[2020-02-08 17:18] VITALS: BP 131/75
== END 2020-02-08 17:18 | disposition home or self-care (01) | DRG 492 ==
LOC: ER 18:32 → MS 20:54
PROVIDERS: ADMIT Family Medicine; ATTEND Family Medicine
DX: S82.251A Displaced comminuted fracture of shaft of right tibia, initial encounter for closed fracture; J96.01 Acute respiratory failure with hypoxia; J96.02 Acute respiratory failure with hypercapnia; R55 Syncope and collapse; Z23 Encounter for immunization; W18.39XA Other fall on same level, initial encounter; I95.9 Hypotension, unspecified; S82.451B Displaced comminuted fracture of shaft of right fibula, initial encounter for open fracture type I or II